=== PATIENT | female | born 1980 | race African-American/Black ===

== ENCOUNTER 2017-08-01 13:31 | Emergency (ER) | payer MEDICAID ==
[~2017-08-01] VITALS: Ht 160 cm; Wt 86.0 kg
[~2017-08-01 13:31] MED LIST: ALBUL; DIPH25ST8; OLAN10TA3; PALI1.5T; TEMA7.5C
[2017-08-01] MEDS ORDERED: TRAMADOL 50MG TABLET PO ONE (18:00)
[2017-08-01] MEDS ORDERED: OXYCODONE HCL/ACETAMINOPHEN 5/325MG TABLET PO ONE (18:15)
[2017-08-01] MEDS ORDERED: METHYLPREDNISOLONE SOD SUCC 125 MG/2 ML VIAL IM ONE (18:15)
[2017-08-01] MEDS ORDERED: KETOROLAC 30MG/ML VIAL IM ONE (19:30)
[2017-08-01 20:22] VITALS: BP 127/76
== END 2017-08-01 21:05 | disposition home or self-care (01) ==
LOC: ER 15:09
DX: R51 Headache (principal); G24.01 Drug induced subacute dyskinesia; J45.909 Unspecified asthma, uncomplicated; F90.9 Attention-deficit hyperactivity disorder, unspecified type; F20.9 Schizophrenia, unspecified; Z98.890 Other specified postprocedural states
CPT/HCPCS: 96372; 99284; J1885; J2930; Z7610

== ENCOUNTER 2019-01-27 18:56 | Inpatient (IN) | payer MEDICAID ==
[~2019-01-27] VITALS: Ht 160 cm; Wt 82.6 kg
[~2019-01-27 18:56] MED LIST changes: -ALBUL; +BACL20TA PO; +BENZ2TAB7 PO; +BUSP10TA3 PO; +CLOZ100T31 PO; +DIPH25CA46 PO; -DIPH25ST8; +DOCU-150 PO; +GABA-290 PO; +IRON1CAP21 MT; +KEPP500 PO; +LORA1TAB PO; -OLAN10TA3; -PALI1.5T; -TEMA7.5C
[2019-01-27] MEDS ORDERED: SODIUM CHLORIDE 0.9% 1,000 ML IV ONE (20:23)
[2019-01-27] MEDS ORDERED: KETOROLAC 30MG/ML VIAL IV STA (20:23)
[2019-01-27] MEDS ORDERED: SUMATRIPTAN SUCCINATE 6MG/0.5ML VIAL SUBCUT ONE (20:30)
[2019-01-27 20:52] LABS: BASOPHILS % 1.3 % (0.0-2.0); EOSINOPHILS % 8.9 % (0.0-5.0); LYMPHOCYTES % 26.5 % (20.0-50.0); MEAN CORPUSCULAR HEMOGLOBIN 17.1 pg (28.0-32.0); MEAN CORPUSCULAR VOLUME 57.5 fL (81.0-99.0); MEAN PLATELET VOLUME 8.2 fl (7.4-10.4); MONOCYTES % 12.1 % (2.0-8.0); NEUTROPHILS % 51.2 % (40.0-76.0); PLATELET 397 x1000/uL (130-400); RED BLOOD CELL COUNT 3.55 mill/uL (4.2-5.4); RED CELL DISTRIBUTION WIDTH 20.4 % (11.6-14.6)
[2019-01-27 21:00] LABS: CHLORIDE 112 mEq/L (98-107)
[2019-01-27 21:10] LABS: HEMATOCRIT. 20.4 % (36.0-48.0); HEMOGLOBIN. 6.1 g/dL (12.0-16.0)
[2019-01-27 21:43] LABS: PLATELET ESTIMATE NORMAL
[2019-01-28] VITALS (12 sets, daily range): BP systolic 110–133; BP diastolic 53–81
[2019-01-28] MEDS ORDERED: LORAZEPAM 1MG TABLET PO PRN (06:30)
[2019-01-28 06:59] LABS: BASOPHILS % 1.1 % (0.0-2.0); EOSINOPHILS % 8.9 % (0.0-5.0); HEMATOCRIT. 23.9 % (36.0-48.0); HEMOGLOBIN. 7.1 g/dL (12.0-16.0); LYMPHOCYTES % 30.8 % (20.0-50.0); MEAN CORPUSCULAR VOLUME 60.2 fL (81.0-99.0); MEAN PLATELET VOLUME 8.2 fl (7.4-10.4); MONOCYTES % 13.1 % (2.0-8.0); NEUTROPHILS % 46.1 % (40.0-76.0); PLATELET 377 x1000/uL (130-400); RED BLOOD CELL COUNT 3.97 mill/uL (4.2-5.4); RED CELL DISTRIBUTION WIDTH 24.6 % (11.6-14.6)
[2019-01-28] MEDS: DOCUSATE SODIUM 100MG CAPSULE PO SCH ×2 (10:11→17:00)
[2019-01-28] MEDS: LEVETIRACETAM 500MG TABLET PO SCH ×2 (10:11→21:40)
[2019-01-28] MEDS ORDERED: SUMATRIPTAN SUCCINATE 25MG TABLET PO PRN (11:30)
[2019-01-28 11:47] LABS: PROTHROMBIN TIME 10.5 sec (9.6-11.0)
[2019-01-28] MEDS: BACLOFEN 20MG TABLET PO SCH ×2 (12:00→18:00)
[2019-01-28] MEDS ORDERED: PNEUMOCOCCAL 23-VAL P-SAC VAC 0.5 ML IM ONE (12:00)
[2019-01-28] MEDS: GABAPENTIN 300MG CAPSULE PO SCH ×2 (14:18→21:41)
[2019-01-28] MEDS: BUSPIRONE HCL 10MG TABLET PO SCH ×2 (14:18→21:40)
[2019-01-28] MEDS: IPRATROPIUM/ALBUTEROL 0.5-3(2.5)MG/3ML NEB HHN PRN (23:59)
[2019-01-29] VITALS: BP 98/58
[2019-01-29] MEDS: BACLOFEN 20MG TABLET PO SCH ×3 (00:23→12:43)
[2019-01-29] MEDS: IPRATROPIUM/ALBUTEROL 0.5-3(2.5)MG/3ML NEB HHN PRN (03:59)
[2019-01-29 04:00] VITALS: BP 99/61
[2019-01-29] MEDS: GABAPENTIN 300MG CAPSULE PO SCH ×2 (05:45→13:50)
[2019-01-29] MEDS: BUSPIRONE HCL 10MG TABLET PO SCH ×2 (05:45→13:50)
[2019-01-29 06:35] LABS: BASOPHILS % 1.2 % (0.0-2.0); EOSINOPHILS % 7.2 % (0.0-5.0); HEMATOCRIT. 27.5 % (36.0-48.0); HEMOGLOBIN. 8.6 g/dL (12.0-16.0); LYMPHOCYTES % 17.7 % (20.0-50.0); MEAN CORPUSCULAR HEMOGLOBIN 19.1 pg (28.0-32.0); MEAN CORPUSCULAR VOLUME 61.4 fL (81.0-99.0); MEAN PLATELET VOLUME 8.5 fl (7.4-10.4); MONOCYTES % 10.1 % (2.0-8.0); NEUTROPHILS % 63.8 % (40.0-76.0); PLATELET 419 x1000/uL (130-400); RED BLOOD CELL COUNT 4.48 mill/uL (4.2-5.4); RED CELL DISTRIBUTION WIDTH 25.5 % (11.6-14.6)
[2019-01-29 06:48] LABS: CHLORIDE 111 mEq/L (98-107)
[2019-01-29 08:00] VITALS: BP 95/47
[2019-01-29] MEDS: LEVETIRACETAM 500MG TABLET PO SCH (08:56)
[2019-01-29] MEDS: DOCUSATE SODIUM 100MG CAPSULE PO SCH (08:56)
[2019-01-29] MEDS ORDERED: IRON SUCROSE COMPLEX 100 MG/5 ML ML IV SCH (09:00)
[2019-01-29 14:33] VITALS: BP 95/47
== END 2019-01-29 15:30 | disposition home or self-care (01) | DRG 663 ==
LOC: ER 18:56 → 6EST 22:47 → EDBEDREQ 22:51 → EDBEDREQSVC 22:51 → EDBEDREQTM 22:51 → EDBEDREQ 22:52 → ENRESERV 23:20 → 6EST 01-28 06:51
PROVIDERS: ADMIT Internal Medicine; ATTEND Internal Medicine
PROC: 30233N1 Transfusion of Nonautologous Red Blood Cells into Peripheral Vein, Percutaneous Approach (ICD-10-PCS; principal; 2019-01-28)
DX: D64.9 Anemia, unspecified (principal); E44.1 Mild protein-calorie malnutrition; E87.8 Other disorders of electrolyte and fluid balance, not elsewhere classified; F20.9 Schizophrenia, unspecified; D25.9 Leiomyoma of uterus, unspecified; G43.909 Migraine, unspecified, not intractable, without status migrainosus; G40.909 Epilepsy, unspecified, not intractable, without status epilepticus; F31.9 Bipolar disorder, unspecified; F17.210 Nicotine dependence, cigarettes, uncomplicated; J45.909 Unspecified asthma, uncomplicated; Z79.899 Other long term (current) drug therapy; Z68.32 Body mass index [BMI] 32.0-32.9, adult
CPT/HCPCS: 36415; 76830; 76856; 80048; 86850; 86900; 86920; 90732; 99291; J1885; J3030; J7030; J7040; J7620; P9016

== ENCOUNTER 2019-04-28 17:16 | Emergency (ER) | payer MEDICAID ==
[~2019-04-28] VITALS: Ht 160 cm; Wt 83.0 kg
[2019-04-28] MEDS ORDERED: PREDNISONE 20MG TABLET PO STA (20:18)
[2019-04-28] MEDS ORDERED: ALBUTEROL (0.083%) 2.5MG/3ML NEB HHN STA (20:18)
[2019-04-28] MEDS ORDERED: KETOROLAC 60MG/2ML VIAL IM ONE (20:30)
[2019-04-28] MEDS ORDERED: SUMATRIPTAN SUCCINATE 6MG/0.5ML VIAL SUBCUT ONE (20:30)
[2019-04-28 20:40] VITALS: BP 128/91
== END 2019-04-28 21:35 | disposition home or self-care (01) ==
LOC: ER 17:16
DX: R51 Headache (principal); J45.909 Unspecified asthma, uncomplicated; Z98.890 Other specified postprocedural states
CPT/HCPCS: 96372; 99283; J1885; J3030; J7512; J7611

== ENCOUNTER 2020-05-09 13:17 | Emergency (ER) | payer MEDICAID ==
[~2020-05-09] VITALS: Ht 170.2 cm; Wt 60.0 kg
[2020-05-09 14:32] LABS: BASOPHILS % 0.6 % (0.0-2.0); EOSINOPHILS % 5.2 % (0.0-5.0); HEMATOCRIT. 29.9 % (36.0-48.0); LYMPHOCYTES % 16.5 % (20.0-50.0); MEAN CORPUSCULAR HEMOGLOBIN 25.7 pg (28.0-32.0); MEAN PLATELET VOLUME 8.6 fl (7.4-10.4); MONOCYTES % 7.6 % (2.0-8.0); NEUTROPHILS % 70.1 % (40.0-76.0); PLATELET 278 x1000/uL (130-400); RED BLOOD CELL COUNT 3.89 mill/uL (4.2-5.4); RED CELL DISTRIBUTION WIDTH 26.7 % (11.6-14.6)
[2020-05-09 14:39] LABS: CHLORIDE 109 mEq/L (98-107)
[2020-05-09 14:42] LABS: PROTHROMBIN TIME 10.3 sec (9.6-11.0)
[2020-05-09 14:43] LABS: ETHANOL BLOOD < 10 mg/dL
[2020-05-09 15:10] LABS: PLATELET ESTIMATE NORMAL
[2020-05-09 15:19] LABS: *BARBITURATES SCREEN URINE NEGATIVE (NEGATIVE)
[2020-05-09 15:20] LABS: *AMPHETAMINES SCREEN URINE NEGATIVE (NEGATIVE); *BENZODIAZEPINES SCREEN URINE NEGATIVE (NEGATIVE); *COCAINE SCREEN URINE NEGATIVE (NEGATIVE); METHADONE URINE SCREEN NEGATIVE (NEGATIVE); OPIATES URINE SCREEN NEGATIVE (NEGATIVE); PHENCYCLIDINE URINE SCREEN NEGATIVE (NEGATIVE)
[2020-05-09 15:21] LABS: CANNABINOID URINE SCREEN NEGATIVE (NEGATIVE)
[2020-05-09 16:36] LABS: CLARITY URINE CLEAR (CLEAR); COLOR URINE YELLOW (YELLOW); KETONES URINE NEGATIVE (NEGATIVE); LEUKOCYTE ESTERASE URINE NEGATIVE (NEGATIVE); NITRITE URINE NEGATIVE (NEGATIVE); OCCULT BLOOD URINE 2+ (NEGATIVE); PROTEIN URINE NEGATIVE (NEGATIVE); SPECIFIC GRAVITY URINE 1.007 (1.005-1.030); UROBILINOGEN URINE 0.2 E.U./dL (0.2-1.0)
[2020-05-09 16:56] LABS: HCG SCREEN NEGATIVE
[2020-05-09 20:09] VITALS: BP 103/67
== END 2020-05-09 20:09 | disposition home or self-care (01) ==
LOC: ER 13:17
DX: R56.9 Unspecified convulsions (principal); M54.5 Low back pain; D64.9 Anemia, unspecified; J45.909 Unspecified asthma, uncomplicated; Z91.14 Patient's other noncompliance with medication regimen; Z79.899 Other long term (current) drug therapy
CPT/HCPCS: 36415; 71045; 74177; 80053; 80305; 80320; 81003; 83605; 84484; 84703; 85025; 99285; G0480

== ENCOUNTER 2021-06-13 14:03 | Emergency (ER) | payer MEDICAID ==
[~2021-06-13] VITALS: Ht 160 cm; Wt 91.0 kg
[~2021-06-13 14:03] MED LIST changes: +DIPH-1042 PO; -DIPH25CA46 PO
[2021-06-13] MEDS ORDERED: KETOROLAC 30MG/ML VIAL IV STA (21:33)
[2021-06-13] MEDS ORDERED: SODIUM CHLORIDE 0.9% 1,000 ML IV ONE (21:45)
[2021-06-13 22:08] LABS: BASOPHILS % 0.9 % (0.0-2.0); EOSINOPHILS % 7.9 % (0.0-5.0); HEMATOCRIT. 33.7 % (36.0-48.0); LYMPHOCYTES % 29.6 % (20.0-50.0); MEAN CORPUSCULAR VOLUME 79.6 fL (81.0-99.0); MONOCYTES % 9.6 % (2.0-8.0); PLATELET 416 x1000/uL (130-400); RED BLOOD CELL COUNT 4.24 mill/uL (4.2-5.4); RED CELL DISTRIBUTION WIDTH 16.5 % (11.6-14.6)
[2021-06-13 22:09] LABS: CHLORIDE 110 mEq/L (98-107)
[2021-06-13 23:18] LABS: CLARITY URINE CLEAR (CLEAR); COLOR URINE YELLOW (YELLOW); SPECIFIC GRAVITY URINE 1.021 (1.005-1.030)
[2021-06-13 23:19] LABS: KETONES URINE NEGATIVE (NEGATIVE); LEUKOCYTE ESTERASE URINE NEGATIVE (NEGATIVE); NITRITE URINE NEGATIVE (NEGATIVE); OCCULT BLOOD URINE NEGATIVE (NEGATIVE); PROTEIN URINE NEGATIVE (NEGATIVE); UROBILINOGEN URINE 0.2 E.U./dL (0.2-1.0)
[2021-06-14 00:15] VITALS: BP 117/77
== END 2021-06-14 00:15 | disposition home or self-care (01) ==
LOC: ER 14:03
DX: M79.18 Myalgia, other site (principal); R06.02 Shortness of breath; R05.9 Cough, unspecified; D64.9 Anemia, unspecified; J45.909 Unspecified asthma, uncomplicated; F31.9 Bipolar disorder, unspecified; F20.9 Schizophrenia, unspecified; Z79.899 Other long term (current) drug therapy; Z20.822 Contact with and (suspected) exposure to COVID-19
CPT/HCPCS: 36415; 71045; 80053; 81003; 81025; 84484; 85025; 87426; 93005; 96361; 96374; 99285; J1885; J7030